=== PATIENT | female | born 1945 | race Caucasian/White ===

== ENCOUNTER → 2016-08-31 | Outpatient (CLI) | payer MEDICARE ==
[2015-10-26 22:31] VITALS: BP 193/88
[~2016-08-31] MED LIST: ASPI81TA50 PO; BENA40TA2 PO; CRESTOR20 MG PO; GABA-585 PO; HYDR12.58 PO; METO25TA9 PO
--- NOTE | 2016-08-31 13:49 | RAD ---
Bilateral knees, 6 views, 08/31/2016: History: Osteoarthritis AP, lateral and tangential patellar views of both knees were obtained as requested. There is moderate joint space narrowing bilaterally, most severe involving the lateral compartment on the right. There is moderate marginal spurring at both knee joints. There is severe spurring at the patellofemoral articulations. Chondrocalcinosis is evident. No fracture or dislocation is identified. Surgical clips are present in the soft tissues medially on the left. Arterial calcifications are present. IMPRESSION: 1. Moderately severe degenerative change at both knees with chondrocalcinosis. 2. No acute bony abnormality is detected.
== END | disposition home or self-care (01) ==
LOC: RAD 09:25
PROVIDERS: ATTEND Family Medicine
DX: M17.0 Bilateral primary osteoarthritis of knee (principal)
CPT/HCPCS: 73562

== ENCOUNTER → 2016-11-16 | Outpatient (CLI) | payer MEDICARE ==
[2015-10-26 22:31] VITALS: BP 193/88
[2016-11-16 11:30] LABS: BASO % 0 % (0-3); EOS % 2 % (0-3); HEMATOCRIT 43.9 % (36.0-47.0); HEMOGLOBIN 14.7 g/dL (12.0-15.5); LYMPH # 1.6 x10^3/uL (1.0-4.8); LYMPH % 28 % (24-48); MEAN CORPUSCULAR HEMOGLOBIN 31 pg (25-35); MEAN CORPUSCULAR HGB CONC 33 g/dL (31-37); MEAN CORPUSCULAR VOLUME 92 fL (79-100); MONO % 9 % (0-9); NEUT % 61 % (31-73); PLATELET COUNT 218 x10^3/uL (140-400); RED BLOOD COUNT 4.77 x10^6/uL (3.50-5.40); RED CELL DISTRIBUTION WIDTH 14.9 % (11.5-14.5); WHITE BLOOD COUNT 5.7 x10^3/uL (4.0-11.0)
--- NOTE | 2016-11-16 11:40 | RAD ---
Left lower extremity venous ultrasound, 11/16/2016 : History: Left leg pain and swelling Duplex evaluation including grayscale, color flow and spectral Doppler analysis was performed. The femoral and popliteal veins show no filling defects to suggest DVT. The visualized calf veins are unremarkable. Incidental note is made of a 1.8 x 1.4 x 5.5 cm fluid collection in the left popliteal fossa compatible with a Nobles's cyst. IMPRESSION: 1. There is no sonographic evidence of deep vein thrombosis in the left lower extremity. 2. Left popliteal cyst.
== END | disposition home or self-care (01) ==
LOC: RAD 10:39
PROVIDERS: ATTEND Family Medicine
DX: M25.561 Pain in right knee (principal); M17.0 Bilateral primary osteoarthritis of knee; M79.662 Pain in left lower leg; R60.0 Localized edema; M25.462 Effusion, left knee; M71.22 Synovial cyst of popliteal space [Baker], left knee
CPT/HCPCS: 36415; 85027; 93971

== ENCOUNTER → 2016-12-11 | Outpatient (CLI) | payer MEDICARE ==
[2015-10-26 22:31] VITALS: BP 193/88
--- NOTE | 2016-12-11 13:20 | CARD ---
APPROVED REPORT EXAM: Two-dimensional and M-mode echocardiogram with Doppler and color Doppler. Other Information Quality : GoodHR: 64bpm Rhythm : NSRTechnically limited study due to body habitus. INDICATION Palpitations Hypertension/HCVD Cardiac Disease: CAD RISK FACTORS Obesity 2D DIMENSIONS RVDd3.7 (2.9-3.5cm)Left Atrium(2D)3.7 (1.6-4.0cm) IVSd1.2 (0.7-1.1cm)Aortic Root(2D)2.6 (2.0-3.7cm) LVDd3.6 (3.9-5.9cm)LVOT Diameter2.3 (1.8-2.4cm) PWd0.1 (0.7-1.1cm)LVDs2.6 (2.5-4.0cm) FS (%) 28.3 %SV29.9 ml LVEF(%)55.6 (>50%) Aortic Valve AoV Peak Alphonso.184.6cm/sAoV VTI39.5cm AO Peak GR.13.6mmHgLVOT Peak Alphonso.99.4cm/s AO Mean GR.8mmHgAVA (VMAX)2.17cm2 Mitral Valve MV E Phnlprkw944.1cm/sMV E Peak Gr.3mmHg MV DECEL [id number] A Gthynufh79.9cm/s MV E Mean Gr.1mmHgE/A Ratio1.5 MV A Oppiikow03ve Pulmonary Valve PV Peak Ysnhkjjc960.5cm/s Pulmonary Vein S1 Ctsshzky65.0cm/sD2 Fcggzmlc74.7cm/s PVa [id number] LEFT VENTRICLE The left ventricle is normal size. There is mild concentric left ventricular hypertrophy. The left ve ntricular systolic function is normal and the ejection fraction is within normal range. The Ejection Fraction is 55-60%. There is grossly normal LV segmental wall motion. Difficult to visualize due to s uboptimal images. Transmitral Doppler flow pattern is Grade II-pseudonormal filling dynamics. RIGHT VENTRICLE The right ventricle is normal size. There is normal right ventricular wall thickness. The right ventr icular systolic function is normal. ATRIA The left atrium is mildly dilated. The right atrium size is normal. The interatrial septum is intact with no evidence for an atrial septal defect or patent foramen ovale as noted on 2-D or Doppler imagi ng. AORTIC VALVE The aortic valve is mildly sclerotic. The aortic valve is trileaflet. Doppler and Color Flow revealed no significant aortic regurgitation. There is no significant aortic valvular stenosis. MITRAL VALVE The mitral valve leaflets are mildly thickened. There is no evidence of mitral valve prolapse. There is no mitral valve stenosis. Doppler and Color Flow revealed mild mitral regurgitation. TRICUSPID VALVE Doppler and Color Flow revealed no tricuspid valve regurgitation noted. Unable to determine pulmonary artery pressure at exam time. PULMONIC VALVE Doppler and Color Flow revealed mild pulmonic valvular regurgitation. There is no pulmonic valvular s tenosis. GREAT VESSELS The aortic root is normal in size. The ascending aorta is normal in size. The IVC is normal in size a nd collapses >50% with inspiration. PERICARDIAL EFFUSION There is no evidence of significant pericardial effusion. Critical Notification Critical Value: No <Conclusion> The left ventricular systolic function is normal and the ejection fraction is within normal range. Th e Ejection Fraction is 55-60%. There is grossly normal LV segmental wall motion. Difficult to visualize due to suboptimal images.
== END | disposition home or self-care (01) ==
LOC: ECHO 07:44
PROVIDERS: ATTEND Internal Medicine Cardiovascular Disease
DX: I10 Essential (primary) hypertension (principal); I25.10 Atherosclerotic heart disease of native coronary artery without angina pectoris; E78.2 Mixed hyperlipidemia; E66.01 Morbid (severe) obesity due to excess calories; R00.2 Palpitations; Z95.1 Presence of aortocoronary bypass graft; Z68.41 Body mass index [BMI] 40.0-44.9, adult
CPT/HCPCS: 93306

== ENCOUNTER → 2016-12-14 | Outpatient (CLI) | payer MEDICARE ==
[2015-10-26 22:31] VITALS: BP 193/88
--- NOTE | 2016-12-14 10:29 | RAD ---
Bilateral carotid arterial duplex study 12/14/2016 Clinical History: Coronary artery disease. Technique: Using a combination of real-time ultrasound imaging and color-flow and pulse Doppler imaging techniques, duplex evaluation of the carotid and vertebral arterial structures within the neck was performed. Multiple images were obtained. Findings: Mild to moderate atheromatous/atherosclerotic plaque formation is seen involving both carotid bifurcations. The peak systolic velocities are not significantly elevated. No hemodynamically significant stenosis is seen. The vertebral arteries demonstrate normal antegrade flow. Impression: Mild to moderate atheromatous/atherosclerotic plaque formation is seen involving both carotid bifurcations. No hemodynamically significant stenosis is seen. Please note that stenosis calculations for carotid ultrasound studies are derived from validated velocity criteria which are known to correlate with the NASCET methodology.
== END | disposition home or self-care (01) ==
LOC: US 08:53
PROVIDERS: ATTEND Internal Medicine Cardiovascular Disease
DX: I25.10 Atherosclerotic heart disease of native coronary artery without angina pectoris (principal); I65.23 Occlusion and stenosis of bilateral carotid arteries; I10 Essential (primary) hypertension; E66.01 Morbid (severe) obesity due to excess calories; E78.2 Mixed hyperlipidemia; R00.2 Palpitations; Z98.61 Coronary angioplasty status
CPT/HCPCS: 93880

== ENCOUNTER → 2018-12-23 | Outpatient (CLI) | payer MEDICARE ==
[2015-10-26 22:31] VITALS: BP 193/88
[~2018-12-23] MED LIST changes: +ACET-1550 PO; +ACET500T68 PO; -BENA40TA2 PO; +BENA40TA3 PO; +CELE200C PO; +LACT1CAP19 PO; +METO-239 PO; -METO25TA9 PO; +MULT-460 PO; +OXYC5CAP PO; +TRAM50TA PO; +TYLENOL PM PO; +VANC500V PO; +WARF-78 PO; +WARF2TAB96 PO
[2018-12-23 09:37] LABS: BASO % 1 % (0-3); EOS # 0.1 x10^3/uL (0.0-0.7); EOS % 1 % (0-3); HEMATOCRIT 45.2 % (36.0-47.0); HEMOGLOBIN 15.3 g/dL (12.0-15.5); LYMPH # 2.3 x10^3/uL (1.0-4.8); LYMPH % 34 % (24-48); MEAN CORPUSCULAR HEMOGLOBIN 32 pg (25-35); MEAN CORPUSCULAR HGB CONC 34 g/dL (31-37); MEAN CORPUSCULAR VOLUME 95 fL (79-100); MONO # 0.5 x10^3/uL (0.0-1.1); MONO % 8 % (0-9); NEUT # 3.8 x10^3uL (1.8-7.7); NEUT % 56 % (31-73); PLATELET COUNT 222 x10^3/uL (140-400); RED BLOOD COUNT 4.78 x10^6/uL (3.50-5.40); RED CELL DISTRIBUTION WIDTH 14.3 % (11.5-14.5); WHITE BLOOD COUNT 6.8 x10^3/uL (4.0-11.0)
[2018-12-23 09:40] LABS: ALBUMIN 3.7 g/dL (3.4-5.0); CALCIUM 9.6 mg/dL (8.5-10.1); CREATININE 0.7 mg/dL (0.6-1.0); GFR 81.6; POTASSIUM 3.9 mmol/L (3.5-5.1)
[2018-12-23 11:50] LABS: BILIRUBIN,URINE NEGATIVE (NEG); CLARITY,URINE CLEAR; COLOR,URINE YELLOW; NITRITE,URINE NEGATIVE (NEG); PROTEIN,URINE NEGATIVE (NEG-TRACE); UROBILINOGEN,URINE 0.2 mg/dL (0.2 mg/dL)
[2018-12-23 12:07] LABS: BACTERIA,URINE 0 /HPF (0-FEW); HYALINE CASTS, URINE FEW /HPF; RBC,URINE 0 /HPF (0-2); SQUAMOUS EPITHELIAL CELL,UR FEW /LPF; WBC,URINE 0 /HPF (0-4)
--- NOTE | 2018-12-23 15:01 | EKG ---
[facility] [address] [place] [address] Test Date: 2018-12-23 Test Time: 13:52:00 Pat Name: MATILDE ATKINS Department: Room: Gender: F [employer]: : 1945 Requested By: DEEDEE VIGIL Order Number: [id number] Reading MD: Adeel Hernandez MD Measurements Intervals Simms Rate: 60 P: KS: QRS: 9 QRSD: 78 T: 90 QT: 410 QTc: 414 Interpretive Statements SR NON-SPECIFIC ST/T CHANGES NO ACUTE ABNORMALITIES Electronically Signed On 12-24-2018 11:28:52 CDT by Adeel Hernandez MD
--- NOTE | 2018-12-23 15:03 | RAD ---
Chest, PA and Lateral: Technique: PA and lateral views of the chest were obtained. History: Hypertension, preop testing. Comparison: 10/26/2015. Findings: Mild cardiomegaly. Median sternotomy wires identified. Mild prominent appearing bilateral interstitial lung markings likely chronic interstitial changes similar to prior exam. Moderate degenerative changes thoracic spine. IMPRESSION: No acute cardiopulmonary findings. Electronically signed by: Jamie Ahmadi MD (12/23/2018 3:00 PM) [id number]
== END | disposition home or self-care (01) ==
LOC: SURGPAT 13:20
PROVIDERS: ATTEND Orthopaedic Surgery
DX: Z01.818 Encounter for other preprocedural examination (principal); M25.561 Pain in right knee; I11.9 Hypertensive heart disease without heart failure; I25.10 Atherosclerotic heart disease of native coronary artery without angina pectoris; Z88.0 Allergy status to penicillin
CPT/HCPCS: 36415; 71046; 80048; 81001; 82040; 82306; 85025; 85610; 85651; 85730; 87641; 93005